=== PATIENT | female | born 1940 | race Caucasian/White ===

== ENCOUNTER 2021-01-25 12:00 | Emergency (ER) | payer MEDICARE ==
[~2021-01-25 12:00] MED LIST: CARTIA XT240 MG PO; CEFUROXIME500 MG PO; ELAVIL 25 MG TA25 MG PO; FLECAINIDE ACET50 MG PO; KEFLEX CAP 500500 MG PO; MELATONIN3 MG PO; NORVASC5 MG PO; OMEPRAZOLE20 MG PO; PAXIL 20 MG TAB20 MG PO; PERCOCET 5-3251 EACH PO
[2021-01-25 14:08] LABS: HEMOGLOBIN 13.2 gm/dl (12.3-15.3); RED BLOOD COUNT 3.89 M/UL (4.00-5.10); WHITE BLOOD COUNT 4.6 K/UL (4.5-11.0)
[2021-01-25] MEDS ORDERED: COLACE100 MG PO (16:38)
[2021-01-25] MEDS ORDERED: MECLIZINE HCL25 MG PO ×2 (16:40→16:42)
== END 2021-01-25 18:28 | disposition home or self-care (01) ==
LOC: ER1 12:00
PROVIDERS: Physician Assistant
DX: R10.32 Left lower quadrant pain (principal); R42 Dizziness and giddiness; F41.9 Anxiety disorder, unspecified; E11.9 Type 2 diabetes mellitus without complications; I10 Essential (primary) hypertension; Z90.49 Acquired absence of other specified parts of digestive tract; Z90.710 Acquired absence of both cervix and uterus; Z88.5 Allergy status to narcotic agent; Z79.899 Other long term (current) drug therapy
CPT/HCPCS: 70450; 71045; 80053; 81001; 83690; 84484; 85025; 93005; 96374; 99284; J2060; J7030; Q9967

== ENCOUNTER → 2021-11-02 | Outpatient (CLI) | payer MEDICARE ==
[~2021-11-02] MED LIST changes: +COLACE100 MG PO; +MECLIZINE HCL25 MG PO
== END ==
LOC: KOH-I 13:05
DX: R10.9 Unspecified abdominal pain (principal)
CPT/HCPCS: 74176

== ENCOUNTER → 2022-02-21 | Outpatient (CLI) | payer MEDICARE | LOC: RT 15:00 | DX: I47.1 Supraventricular tachycardia (principal) | CPT/HCPCS: 93005 ==